=== PATIENT | male | born 1970 | race Caucasian/White ===

== ENCOUNTER 2017-02-06 11:11 | Emergency (ER) | payer MEDICAID ==
[~2017-02-06] VITALS: Ht 165.1 cm; Wt 79.5 kg
[2017-02-06] MEDS ORDERED: IBUP-2070 PO (11:43)
[2017-02-06 12:22] LABS: BASOPHILS # (AUTO) 0.05 K/uL (0.00-0.20); BASOPHILS % (AUTO) 0.7 % (0.0-2.0); EOSINOPHILS # (AUTO) 0.01 K/uL (0.00-0.70); EOSINOPHILS % (AUTO) 0.18 % (1.0-6.0); HEMATOCRIT 43.8 % (41-53); HEMOGLOBIN 14.8 g/dL (13.5-17.5); LYMPHOCYTES # (AUTO) 1.3 K/uL (1.0-4.8); LYMPHOCYTES % (AUTO) 19.8 % (22.0-44.0); MEAN CORPUSCULAR HEMOGLOBIN 30.2 pg (26.0-34.0); MEAN CORPUSCULAR HGB CONC 33.8 G/dL (31.0-37.0); MEAN CORPUSCULAR VOLUME 89 fL (80-100); MONOCYTES # (AUTO) 0.8 K/uL (0.1-1.0); MONOCYTES % (AUTO) 11.3 % (2.0-9.0); NEUTROPHILS # (AUTO) 4.6 K/uL (1.8-7.7); PLATELET COUNT (AUTO) 231 K/uL (150-450); RED CELL DISTRIBUTION WIDTH 13.4 % (11.5-14.5); WHITE BLOOD COUNT (AUTO) 6.7 K/uL (4.5-11.0)
[2017-02-06 12:32] LABS: ANION GAP 8 mmol/L (8-16); CALCIUM, TOTAL 8.2 mg/dL (8.8-10.5); CARBON DIOXIDE 26 mmol/L (22-29); CHLORIDE 102 mmol/L (98-107); GLOMERULAR FILTR. RATE CALC > 60 mL/min (>60); POTASSIUM 3.7 mmol/L (3.5-5.1); SODIUM SERUM 136 mmol/L (136-145); UREA NITROGEN, BLOOD 9 mg/dL (7-18)
[2017-02-06 12:38] LABS: PROTHROMBIN TIME 10.7 SEC (9.4-11.6)
[2017-02-06 12:38] LABS: APPEARANCE,URINE CLEAR (CLEAR); GLUCOSE, URINE (UA) NEGATIVE (NEGATIVE); KETONES,URINE NEGATIVE (NEGATIVE); LEUKOCYTE ESTERASE ,URINE NEGATIVE (NEGATIVE); OCCULT BLOOD,URINE NEGATIVE (NEGATIVE); PH,URINE 5.5 (5.0-8.0); PROTEIN,URINE NEGATIVE (NEGATIVE)
[2017-02-06 12:41] LABS: ADD UA MICROSCOPIC NO
[2017-02-06 12:45] LABS: B-TYPE NATRIURETIC PEPTIDE 11 pg/mL (0-100)
[2017-02-06 12:57] LABS: ALANINE AMINOTRANSFERASE 41 U/L (12-78); ALBUMIN 3.4 g/dL (3.4-5.0); ASPARTATE AMINOTRANSFERASE 28 U/L (15-37); BILIRUBIN,TOTAL 0.3 mg/dL (0.1-1.0); CREATINE KINASE MB < 0.5 ng/mL (0-5); CREATINE KINASE, TOTAL 104 U/L (39-308); TOTAL PROTEIN, SERUM 7.2 g/dL (6.4-8.2)
[2017-02-06 13:35] VITALS: BP 127/84
== END 2017-02-06 14:09 | disposition home or self-care (01) ==
LOC: EMS 11:14
DX: J40 Bronchitis, not specified as acute or chronic (principal)
CPT/HCPCS: 93005; 99285

== ENCOUNTER 2024-01-05 14:42 | Emergency (ER) | payer MEDICAID, OTHER ==
[~2024-01-05] VITALS: Ht 162.6 cm; Wt 85.0 kg
[~2024-01-05 14:42] MED LIST: IBUP-1492 PO
[2024-01-05 14:47] VITALS: TEMP 98.3
[2024-01-05 17:15] VITALS: BP 136/76; PULSE 75; RESP 16
[2024-01-05] MEDS: METHOCARBAMOL 500 MG TABLET PO ONE (17:43)
[2024-01-05] MEDS: IBUPROFEN 600 MG TABLET PO ONE (17:43)
[2024-01-05] MEDS ORDERED: METH-659 PO (18:25)
[2024-01-05] MEDS ORDERED: IBUP-1554 PO (18:25)
== END 2024-01-05 19:30 | disposition home or self-care (01) ==
LOC: EMS 14:46
DX: S46.911A Strain of unspecified muscle, fascia and tendon at shoulder and upper arm level, right arm, initial encounter (principal); X58.XXXA Exposure to other specified factors, initial encounter; Y93.89 Activity, other specified; Y92.89 Other specified places as the place of occurrence of the external cause; Y99.8 Other external cause status
CPT/HCPCS: 99284; 73030-TC; 73110-TC; Z7502; Z7610

== ENCOUNTER 2024-06-05 17:59 | Emergency (ER) | payer OTHER ==
[~2024-06-05] VITALS: Ht 170.2 cm; Wt 84.1 kg
[~2024-06-05 17:59] MED LIST changes: +IBUP-1554 PO; +METH-659 PO
[2024-06-05 18:06] VITALS: BP 137/75; PULSE 78; RESP 18; TEMP 97.9; O2SAT 98
[2024-06-05 18:23] LABS: BASOPHILS % (AUTO) 0.5 % (0.0-2.0); EOSINOPHILS % (AUTO) 1.9 % (1.0-6.0); HEMATOCRIT 46.1 % (41-53); HEMOGLOBIN 15.4 g/dL (13.5-17.5); LYMPHOCYTES # (AUTO) 2.3 K/uL (1.0-4.8); LYMPHOCYTES % (AUTO) 22.7 % (22.0-44.0); MEAN CORPUSCULAR HEMOGLOBIN 30.7 pg (26.0-34.0); MEAN CORPUSCULAR HGB CONC 33.4 G/dL (31.0-37.0); MEAN CORPUSCULAR VOLUME 92 fL (80-100); NEUTROPHILS # (AUTO) 6.6 K/uL (1.8-7.7); NEUTROPHILS % (AUTO) 64.9 % (40.0-70.0); PLATELET COUNT (AUTO) 284 K/uL (150-450); RED BLOOD CELL COUNT(AUTO) 5.01 MIL/uL (4.50-5.90); RED CELL DISTRIBUTION WIDTH 13.3 % (11.5-14.5); WHITE BLOOD COUNT (AUTO) 10.2 K/uL (4.5-11.0)
[2024-06-05 18:31] LABS: ANION GAP 4 mmol/L (8-16); CALCIUM, TOTAL 8.7 mg/dL (8.8-10.5); CARBON DIOXIDE 30 mmol/L (22-29); CHLORIDE 103 mmol/L (98-107); CREATININE 1.01 mg/dL (0.60-1.30); GLOMERULAR FILTR. RATE CALC > 60 mL/min (>60); GLUCOSE,RANDOM 134 mg/dL (70-110); SODIUM SERUM 137 mmol/L (136-145); UREA NITROGEN, BLOOD 15 mg/dL (7-18)
[2024-06-05 18:39] LABS: TROPONIN I-HIGH SENSITIVITY 4 ng/L (<76)
[2024-06-05] MEDS ORDERED: IBUP-1492 PO (19:16)
[2024-06-05] MEDS: KETOROLAC TROMETHAMINE 30 MG/ML VIAL IM ONE (19:57)
== END 2024-06-05 20:09 | disposition home or self-care (01) ==
LOC: EMS 17:59
DX: R07.89 Other chest pain (principal); I10 Essential (primary) hypertension
CPT/HCPCS: 99285; 71045; 80048; 84484; 85025; 36415; 93005; 96372; J1885